=== PATIENT | female | born 1945 | race African-American/Black ===

== ENCOUNTER 2017-04-19 07:53 | Inpatient (IN) ==
[2017-04-19] MEDS ORDERED: Ondansetron 4 MG/2 ML VIAL IVP ONE (08:10)
[2017-04-19] MEDS ORDERED: *HR* HYDROmorphone (PF) 1 MG/ML SYRINGE IVP ONE (08:10)
--- NOTE | 2017-04-19 08:11 | Emergency Department Note ---
Disposition Clinical Impression: Ureterolithiasis Disposition: Admitted As Inpatient Condition: Fair Referrals: Jerad Bower DO [Primary Care Provider] - Forms: ED Satisfaction Letter, Work/School Release Time of Disposition: 09:37 Abdominal Pain HPI - General Chief Complaint: ED Abdominal Pain Stated Complaint: kidney stone Time Seen by Provider: 04/19/17 08:02 Source: patient, family Mode of arrival: ambulatory Limitations: no limitations Nursing Notes Reviewed: Yes Vital Signs Reviewed: Yes - History of Present Illness HPI Narrative: 71-year-old who developed right flank pain yesterday was seen at an outside facility and told that she had a 5 cm kidney stone. As a discharge instruction but they did not give her a disc of her CT. Pt Subjective Complaint: abdominal pain, flank pain Onset (ago): day(s) (1) Consistency: constant Location: R flank Pain Severity: moderate Pain Scale: 5 Quality: aching Radiation: none Migration to: no migration Improves with: nothing Worsens with: nothing Associated symptoms: Reports: nausea. Denies: fever - Related Data Home Medications Medication Instructions Recorded Confirmed Aspirin [Lo-Dose Aspirin EC] 81 mg PO DAILY 04/19/17 04/19/17 Celecoxib [Celebrex] 200 mg PO DAILY 04/19/17 04/19/17 Cephalexin [Keflex] 500 mg PO QID 04/19/17 04/19/17 Insulin Glargine,Hum.rec.anlog 35 unit SQ QPM 04/19/17 04/19/17 [Lantus Solostar] Losartan/HCTZ [Hyzaar 50-12.5 1 each PO DAILY 04/19/17 04/19/17 Tablet] Ondansetron ODT [Zofran ODT] 4 mg PO Q8H PRN 04/19/17 04/19/17 Oxycodone HCl/Acetaminophen 1 tab PO Q6H PRN 04/19/17 04/19/17 [Percocet 5-325 mg Tablet] Pantoprazole Sodium [Protonix] 40 mg PO DAILY 04/19/17 04/19/17 Allergies Allergy/AdvReac Type Severity Reaction Status Date / Time metformin AdvReac Intermediate Diarrhea Verified 04/19/17 09:48 Nickel AdvReac Rash Verified 04/19/17 09:48 All systems ED: reviewed and negative except as stated. Constitutional: Denies: fever, chills, weakness, weight change Eyes: Denies: eye pain, eye discharge, vision change ENT ED: Denies: ear pain, throat pain, dental pain, hearing loss, epistaxis, congestion, dysphagia Cardiovascular: Denies: chest pain, palpitations, dyspnea on exertion, edema, syncope Respiratory: Denies: cough, dyspnea, wheezes, hemoptysis, stridor Gastrointestinal: Denies: abdominal pain, nausea, vomiting, diarrhea, constipation, hematemesis, melena, hematochezia Genitourinary: Denies: dysuria, frequency, hematuria, discharge Musculoskeletal: Reports: back pain. Denies: neck pain, arthralgia, myalgia Integumentary: Denies: rash, abrasion, lesions Neurological: Denies: headache, weakness, numbness, paresthesias, confusion, abnormal gait, vertigo Psychiatric: Denies: anxiety, depression, suicidal thoughts, homicidal thoughts , auditory hallucinations, visual hallucinations Endocrine: Denies: fatigue Hematological/Lymphatic: Denies: easy bleeding, easy bruising Allergic/Immunologic: Denies: facial swelling, urticaria Abdominal Pain PMH - Past Medical History Medical history: Reports: cancer, diabetes, GERD, hypertension, kidney stones Female Surgical History: Reports: cancer surgery, hysterectomy, orthopedic, other Psychiatric history: Reports: no psych history - Social History Smoking status: Never smoker Alcohol use: Reports: occasionally Drug use: Reports: none Physical Exam - General Limitations: no limitations General appearance: alert, in no apparent distress - Head Head exam: atraumatic, normocephalic, normal inspection - Eye Eye exam: Present: normal appearance, PERRL, EOMI - ENT ENT exam: normal exam, normal oropharynx, mucous membranes moist - Neck Neck exam: Present: normal inspection, full ROM, trachea midline - Chest Chest inspection: Present: normal inspection, symmetric chest wall rise - Respiratory Respiratory exam: Present: normal lung sounds bilaterally - Cardiovascular Cardiovascular exam: Present: regular rate, normal rhythm, normal heart sounds - Abdominal Exam Abdominal exam: Present: soft, Non-Tender. Absent: tenderness, distention, guarding, rebound, rigidity - Extremities Exam Extremities exam: Present: normal inspection, full ROM. Absent: tenderness, pedal edema - Expanded Lower Extremity Exam Gait: observed and normal - Back Exam Back exam: Present: normal inspection, full ROM. Absent: tenderness - Neurological Exam Neurological exam: Present: alert, oriented X3 - Psychiatric Psychiatric exam: Present: normal affect, normal mood - Skin Skin exam: Present: warm, dry, intact, normal color Course - Reevaluation(s) Reevaluation #1: History 11-year-old who comes in seen at outside facility and diagnosed with a stone. Patient's unable tolerate the pain at home. Workup here shows a 6 x 7 proximal right ureter stone. There is some [place]. Urine does show 30-50 red cells 30-50 white cells. Patient's course is complicated by she is diabetic and she is 71 years old. Patient will be admitted for further evaluation and treatment. Time: 09:36 - Consultations Consultation #1: Discussed with see the patient in consult Time: 10:33 Consultation #2: Discussed with , admit. Time: 10:33 Vital Signs Temperature 98.0 F 04/19/17 07:54 Pulse Rate 58 04/19/17 07:54 Respiratory Rate 16 04/19/17 07:54 Blood Pressure 153/60 04/19/17 07:54 O2 Sat by Pulse Oximetry 96 04/19/17 07:54 Temperature 98.0 F 04/19/17 07:54 Pulse Rate 61 04/19/17 09:57 Respiratory Rate 18 04/19/17 09:57 Blood Pressure 142/47 04/19/17 09:57 O2 Sat by Pulse Oximetry 95 04/19/17 09:57 Oxygen Delivery Oxygen Delivery Nasal Cannula Abdominal Pain - Lab Data Lab results reviewed: Yes I reviewed the patient's lab results. Result diagrams: 04/19/17 08:14 04/19/17 08:14 Lab Results 04/19/17 04/19/17 04/19/17 Range/Units 08:04 08:14 08:14 WBC 7.8 (4.3-11.1) K/mcL RBC 4.43 (3.82-4.97) M/mcL Hgb 13.5 (11.5-15.4) g/dL Hct 39.4 (35.3-44.9) % MCV 88.9 (83.0-100.0) fL MCH 30.5 (28.0-33.3) pg MCHC 34.3 (31.6-35.5) g/dL RDW 13.1 (11.5-14.5) % Plt Count 284 (140-400) K/mcL MPV 9.7 (9.4-12.4) fL Immature Gran % 0.3 (0-4) % Seg Neutrophils % 54.5 % Lymphocytes % 32.8 % Monocytes % 8.5 % Eosinophils % 3.0 % Basophils % 0.9 % Neutrophils # 4.2 (1.6-8.9) K/mcL Lymphocytes # 2.5 (0.6-4.6) K/mcL Monocytes # 0.7 (0.0-1.3) K/mcL Eosinophils # 0.2 (0.0-0.6) K/mcL Basophils # 0.1 (0.0-0.2) K/mcL Sodium 139 (136-145) mEq/L Potassium 3.5 (3.5-4.5) mEq/L Chloride 105 (98-109) mEq/L Carbon Dioxide 27 (19-29) mEq/L BUN 18 (7-20) mg/dL Creatinine 1.34 H (0.57-1.11) mg/dL Est GFR ( Amer) 48 L (> 60) Est GFR (Non-Af Amer) 39 L (> 60) BUN/Creatinine Ratio 13 (6-26) Glucose 133 H (70-99) mg/dL Calculated Osmolality 292 (280-300) Calcium 9.1 (8.6-10.8) mg/dL Total Bilirubin 1.0 (0.2-1.2) mg/dL Direct Bilirubin 0.4 (0.0-0.5) mg/dL Indirect Bilirubin 0.6 (0.0-1.2) mg/dL AST 21 (5-34) Units/L ALT 30 (0-55) Units/L Alkaline Phosphatase 80 (38-126) Units/L Serum Total Protein 7.6 (6.0-8.3) g/dL Albumin 3.5 (3.5-5.0) g/dL Globulin 4.1 H (2.4-3.5) g/dL Albumin/Globulin Ratio 0.9 L (1.1-2.2) Amylase 52 (25-125) Units/L Lipase < 10 (8-78) Units/L Ur Specimen Adequacy See below A Urine Color Dark Yellow (Yellow) Urine Clarity Turbid A (Clear) Urine pH 5.5 (5.0-8.0) pH Units Ur Specific [place] > 1.030 H (1.010-1.025) Urine Protein Trace (Neg-Trace) mg/dL Urine Glucose (UA) Normal (Normal) mg/dL Urine Ketones Negative (Negative) mg/dL Urine Blood Negative (Negative) Urine Nitrite Negative (Negative) Urine Bilirubin Negative (Negative) Urine Urobilinogen Normal (Normal) mg/dL Ur Leukocyte Esterase Negative (Negative) Urine Microscopic RBC 30-50 H (0-3) per hpf Urine Microscopic WBC 30-50 H (0-3) per hpf Ur Squamous Epith Cells Many H (None-Few) per lpf Urine Bacteria Many H (None-Few) per hpf Hyaline Casts None Seen (None-Few) per lpf Urine Mucus Moderate H (Few) Ur Culture Indicated? NO (NO) - Radiology Data Radiology results reviewed: Yes I reviewed the patient's radiology results. Abdomen/Pelvis CT 04/19/17 08:08 IMPRESSION: 1. A 6 mm x 7 mm stone is present at the right UPJ, resulting in mild right-sided hydronephrosis. 2. Hepatic steatosis. 3. Diverticulosis. 4. Large midline ventral hernia, containing fat, several loops of small bowel, and a short segment of the transverse colon. No evidence of obstruction. D/ / 04/19/2017 09:28:07 Blake Ryan MD / catarino Interpreting Provider: Blake Ryan MD
[2017-04-19 08:18] LABS: Bilirubin,Urine Negative (Negative); Blood,Urine Negative (Negative); Clarity,Urine Turbid (Clear); Color,Urine Dark Yellow (Yellow); Glucose,Urine (UA) Normal (Normal); Ketones,Urine Negative (Negative); Leukocyte Esterase,Urine Negative (Negative); Nitrite,Urine Negative (Negative); PH,Urine 5.5 pH Units (5.0-8.0); Protein,Urine Trace mg/dL (Neg-Trace); Specific Gravity,Urine > 1.030 (1.010-1.025); Urobilinogen,Urine Normal (Normal)
[2017-04-19 08:23] LABS: Basophils # 0.1 K/mcL (0.0-0.2); Basophils % 0.9 %; Eosinophils # 0.2 K/mcL (0.0-0.6); Hematocrit 39.4 % (35.3-44.9); Hemoglobin 13.5 g/dL (11.5-15.4); Immature Granulocytes % 0.3 % (0-4); Lymphocytes # 2.5 K/mcL (0.6-4.6); Lymphocytes % 32.8 %; Mean Corpuscular HGB Conc 34.3 g/dL (31.6-35.5); Mean Corpuscular Hemoglobin 30.5 pg (28.0-33.3); Mean Corpuscular Volume 88.9 fL (83.0-100.0); Mean Platelet Volume 9.7 fL (9.4-12.4); Monocytes # 0.7 K/mcL (0.0-1.3); Monocytes % 8.5 %; Neutrophils # 4.2 K/mcL (1.6-8.9); Platelet Count 284 K/mcL (140-400); Red Blood Count 4.43 M/mcL (3.82-4.97); Red Cell Distribution Width 13.1 % (11.5-14.5); Segmented Neutrophils % 54.5 %
[2017-04-19 08:23] LABS: Bacteria,Urine Many per hpf (None-Few); RBC,Urine 30-50 per hpf (0-3); Squamous Epithelial Cell,Urine Many per lpf (None-Few); WBC,Urine 30-50 per hpf (0-3)
[2017-04-19 08:42] LABS: Alanine Aminotransferase 30 Units/L (0-55); Albumin 3.5 g/dL (3.5-5.0); Albumin/Globulin Ratio 0.9 (1.1-2.2); Alkaline Phosphatase 80 Units/L (38-126); Amylase 52 Units/L (25-125); Aspartate Amino Transferase 21 Units/L (5-34); BUN/Creatinine Ratio 13 (6-26); Bilirubin,Direct 0.4 mg/dL (0.0-0.5); Bilirubin,Indirect 0.6 mg/dL (0.0-1.2); Blood Urea Nitrogen 18 mg/dL (7-20); Calcium 9.1 mg/dL (8.6-10.8); Carbon Dioxide 27 mEq/L (19-29); Chloride 105 mEq/L (98-109); Globulin 4.1 g/dL (2.4-3.5); Glucose 133 mg/dL (70-99); Lipase < 10 Units/L (8-78); Osmolality,Calculated 292 (280-300); Potassium 3.5 mEq/L (3.5-4.5); Sodium 139 mEq/L (136-145); Total Protein 7.6 g/dL (6.0-8.3); eGFR For African Americans 48 (> 60); eGFR For Non-African Americans 39 (> 60)
[2017-04-19 08:49] LABS: Mucus,Urine Moderate (Few)
[2017-04-19 08:50] LABS: Hyaline Casts,Urine None Seen per lpf (None-Few)
[2017-04-19] MEDS: 0.9 % Sodium Chloride 1,000 ML IVC SCH ×3 (08:55→20:11)
[2017-04-19] MEDS ORDERED: Ondansetron 4 MG/2 ML VIAL IVP PRN (11:26)
[2017-04-19] MEDS ORDERED: Acetaminophen 325 MG TABLET PO PRN (11:26)
[2017-04-19] MEDS ORDERED: Dextrose Gel 15 GM PO PRN ×2 (11:28)
[2017-04-19] MEDS ORDERED: D5% in Water 1,000 ML IVC PRN (11:28)
[2017-04-19] MEDS ORDERED: *HR* Dextrose 50 % in Water (Syg) 50 ML SYRINGE IVP PRN (11:28)
[2017-04-19] MEDS ORDERED: Naloxone 0.4 MG/ML INJ IVP PRN (11:33)
--- NOTE | 2017-04-19 11:54 | Internal Med History&Physical ---
Date of Encounter: 04/19/17 Time of Encounter: 11:50 Assessment and Plan (1) Ureterolithiasis Current visit: Yes Status: Acute 1 patient's been experienced an onset of right flank pain as well as nausea. No fever or leukocytosis. CT of abdomen did reveal a 6 x 7 mm proximal right ureter stone with mild hydronephrosis. We have consulted urology We will continue with IV fluids Continue with pain management as well as nausea medicine Continue with IV antibiotic-Rocephin (2) KRISTI (acute kidney injury) Current visit: Yes Status: Acute 1 patient's creatinine is 1.34 baseline is less than 1 most likely related to hypoperfusion. We will hold Celebrex as well as hyzaar we will resume once patient's back to baseline. 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 Qualified Code(s): E11.9 - Type 2 diabetes mellitus without complications ; Z79.4 - nursing home (current) use of insulin; Z79.4 - terminologist (current) use of insulin; Z79.4 - nursing home (current) use of insulin; Z79.4 - nursing home ( current) use of insulin (4) Hypertension Current visit: Yes Status: Acute presently controlled-we will continue with home medications once KRISTI improved Qualifiers: Hypertension type: essential hypertension Qualified Code(s): I10 - Essential (primary) hypertension (5) DVT prophylaxis Current visit: Yes Status: Acute Heparin subcutaneous Internal Medicine - H&P: HPI Chief complaint: abd pain Admitted From: Emergency Dept Plans for Post Hospital Care: Home History of present illness: Ms. Mccarthy is a 71 year old female past uncle history of hypertension diabetes GERD uterine cancer in 2006. According to patient she was her usual state of health when yesterday she began to experience abdominal pressure as well as right-sided flank pain. She did note that she had decreased urinary output she described the urine as concentrated. She denies any fevers chills urinary frequency or urgency dysuria. She presented to outlying facility they are CT was done which did show kidney stone. She was given antibiotics as well as pain medications and discharged home. Patient continued to experience right flank pain overnight as well as nausea and vomiting. She presented to the ER where workup there showed a 6 x 7 proximal right ureter stone and mild hydronephrosis. She did have an elevated creatinine blood in her urine. ER physician did speak with urology who will see patient for consult. She has been admitted for further workup and evaluation. Presently patient does complain of some mild right flank discomfort. She does have right CVA tenderness abdomen soft and nontender. She is hemodynamically stable at this time review this case with Dr. Stoll who agrees with plan. Past Med Surg Social Fam HX - Past Medical History Medical history: cancer, diabetes, GERD, hypertension, kidney stones Psychiatric history: no psych history - Social History Smoking Status: Never smoker Smokeless Tobacco Status: No Alcohol use: occasionally Drug use: none - Family History Father Living Status: Age at : 63 Cause of : Renal cancer bone cancer Mother Living Status: Age at : 73 Cause of : Heart failure Hx Family Cancer: Yes Hx Family Endocrine Disorder: Yes (Diabetes) Internal Medicine - H&P: Meds Aspirin [Lo-Dose Aspirin EC] 81 mg PO DAILY 04/19/17 [History] Celecoxib [Celebrex] 200 mg PO DAILY 04/19/17 [History] Cephalexin [Keflex] 500 mg PO QID 04/19/17 [History] Insulin Glargine,Hum.rec.anlog [Lantus Solostar] 35 unit SQ QPM 04/19/17 [ History] Losartan/HCTZ [Hyzaar 50-12.5 Tablet] 1 each PO DAILY 04/19/17 [History] Ondansetron ODT [Zofran ODT] 4 mg PO Q8H PRN 04/19/17 [History] Oxycodone HCl/Acetaminophen [Percocet 5-325 mg Tablet] 1 tab PO Q6H PRN [History] Pantoprazole Sodium [Protonix] 40 mg PO DAILY 04/19/17 [History] 3 Allergy/AdvReac Type Severity Reaction Status Date / Time metformin AdvReac Intermediate Diarrhea Verified 04/19/17 09:48 Nickel AdvReac Rash Verified 04/19/17 09:48 All Systems PM: A 10-system review of systems was performed and is negative for pertinent findings except as documented above in the HPI. - Constitutional Constitutional: no chills, no fever(s), no night sweats - EENT Eyes: no change in vision, no discharge, no pain, no photophobia Nose, mouth and throat: no dysphagia, no nasal discharge, no neck pain, no sore throat - Cardiovascular Cardiovascular ROS IM: no chest pain, no diaphoresis, no dyspnea, no lightheadedness, no palpitations, no syncope - Respiratory Respiratory: no cough, no dyspnea, no wheezing, no excessive phlegm production - Gastrointestinal Gastrointestinal: nausea, vomiting, no abdominal pain, no diarrhea, no hematemesis, no hematochezia, no melena - Genitourinary Genitourinary: flank pain - Musculoskeletal Musculoskeletal ROS IM: no numbness, no tingling - Integumentary Integumentary IM: no rash, no unusual bruising - Neurological Neurological ROS: no confusion, no convulsions, no focal weakness, no numbness, no tingling, no tremor(s) - Constitutional Vitals: Temp Pulse Resp BP Pulse Ox 98.0 F 61 16 140/62 95 04/19/17 07:54 04/19/17 09:57 04/19/17 10:53 04/19/17 10:53 04/19/17 09:57 General appearance: Present: A&O X 3, answers questions appropriately - Head Head exam: Present: atraumatic, normocephalic - Eye Eye exam: Present: PERRL, conjuntiva pink, sclera anicteric Pupils: Present: PERRL - Neck Neck exam general surgery: Present: supple, trachea midline. Absent: lymphadenopathy - Respiratory Respiratory exam: Present: CTAB. Absent: accessory muscle use, rales, rhonchi, wheezes - Cardiovascular Cardiovascular exam: Present: RRR, +S1, +S2. Absent: diastolic murmur, gallop, rubs, systolic murmur - GI/Abdominal GI/Abdominal exam: Present: normal bowel sounds, soft, no peritoneal signs. Absent: distended, tenderness - Extremities Exam Extremities exam: Present: warm, radial pulses palpable and symmetrical. Absent : calf tenderness, cyanotic, pedal edema - Back Exam Back exam: Present: CVA tenderness (R) - Neurological Exam Neurological exam: Present: CN II-XII intact, oriented X3, no focal deficits. Absent: pronater drift, facial droop, speech deficit - Skin Skin exam: Present: dry, intact Internal Med - H&P Results - Labs CBC & Chem 7: 04/19/17 08:14 04/19/17 08:14 - Diagnostic Studies Other Images Additional comments: Abdomen/Pelvis CT 04/19/17 08:08 IMPRESSION: 1. A 6 mm x 7 mm stone is present at the right UPJ, resulting in mild right-sided hydronephrosis. 2. Hepatic steatosis. 3. Diverticulosis. 4. Large midline ventral hernia, containing fat, several loops of small bowel, and a short segment of the transverse colon. No evidence of obstruction. D/ / 04/19/2017 09:28:07 Blake Ryan MD / catarino Interpreting Provider: Blake Ryan MD
--- NOTE | 2017-04-19 12:12 | Urology - Consult Note ---
Date of Encounter: 04/19/17 Time of Encounter: 12:09 - Assessment and Plan (1) Acute renal insufficiency Current Visit: Yes Status: Acute Assessment and plan: Likely from dehydration as well as right ureteral stone. Continue with IV fluids (2) Ureterolithiasis Current Visit: Yes Status: Acute Assessment and plan: Plan at this time to continue with medical expulsion therapy with IV fluids and IV pain control. Patient will be scheduled for right ureteroscopic stone extraction tomorrow in the operating room. Urology CN:HPI Consult date: 04/19/17 Reason for consult Urology: Other (right proximal ureteral stone) Requesting physician: Chelsea Barahona History of present illness: Lanie is a 71-year-old female who had an episode of sharp right-sided flank pain couple days ago on a trip in [place]. She was found to have a right proximal 6 mm stone. Patient was discharged home. She then came to our emergency department today secondary to unrelenting right-sided flank pain. Repeat CT scan was done which showed proximal right ureteral stone with mild to moderate hydronephrosis. Patient's pain was poorly controlled and thus patient was brought in for observation for IV pain control. Patient without any nausea at this time but does have a poor appetite. No fevers. Past Med Surg Social Fam HX - Past Medical History Medical history: cancer, diabetes, GERD, hypertension, kidney stones Psychiatric history: no psych history - Social History Smoking Status: Never smoker Smokeless Tobacco Status: No Alcohol use: occasionally Drug use: none - Family History Father Living Status: Age at : 63 Cause of : Renal cancer bone cancer Mother Living Status: Age at : 73 Cause of : Heart failure Hx Family Cancer: Yes Hx Family Endocrine Disorder: Yes (Diabetes) Medications and Allergies Aspirin [Lo-Dose Aspirin EC] 81 mg PO DAILY 04/19/17 [History] Celecoxib [Celebrex] 200 mg PO DAILY 04/19/17 [History] Cephalexin [Keflex] 500 mg PO QID 04/19/17 [History] Insulin Glargine,Hum.rec.anlog [Lantus Solostar] 35 unit SQ QPM 04/19/17 [ History] Losartan/HCTZ [Hyzaar 50-12.5 Tablet] 1 each PO DAILY 04/19/17 [History] Ondansetron ODT [Zofran ODT] 4 mg PO Q8H PRN 04/19/17 [History] Oxycodone HCl/Acetaminophen [Percocet 5-325 mg Tablet] 1 tab PO Q6H PRN [History] Pantoprazole Sodium [Protonix] 40 mg PO DAILY 04/19/17 [History] 3 Allergy/AdvReac Type Severity Reaction Status Date / Time metformin AdvReac Intermediate Diarrhea Verified 04/19/17 09:48 Nickel AdvReac Rash Verified 04/19/17 09:48 Review of Systems - Constitutional no chills, no fever(s) - EENT Nose, mouth and throat: no dizziness - Cardiovascular no chest pain - Respiratory no cough - Gastrointestinal abdominal pain - Musculoskeletal back pain - Integumentary no erythema - Neurological no confusion Exam Initial Vital Signs Temp Pulse Resp BP Pulse Ox 98.0 F 58 16 153/60 96 04/19/17 07:54 04/19/17 07:54 04/19/17 07:54 04/19/17 07:54 04/19/17 07:54 - General physical appearance Present: well developed - Eyes Present: PERRL - ENT Present: normal nares - Neck Present: no masses - Respiratory Present: normal respiratory effort - Cardiovascular Cardiovascular exam IM: RRR - Abdomen Abdomen: Present: soft Urology Results - Labs 04/19/17 08:14 04/19/17 08:14 Abnormal lab results Creatinine 1.34 mg/dL (0.57-1.11) H 04/19/17 08:14 Est GFR ( Amer) 48 (> 60) L 04/19/17 08:14 Est GFR (Non-Af Amer) 39 (> 60) L 04/19/17 08:14 Glucose 133 mg/dL (70-99) H 04/19/17 08:14 Globulin 4.1 g/dL (2.4-3.5) H 04/19/17 08:14 Albumin/Globulin Ratio 0.9 (1.1-2.2) L 04/19/17 08:14 Ur Specimen Adequacy See below A 04/19/17 08:04 Urine Clarity Turbid (Clear) A 04/19/17 08:04 Ur Specific [place] > 1.030 (1.010-1.025) H 04/19/17 08:04 Urine Microscopic RBC 30-50 per hpf (0-3) H 04/19/17 08:04 Urine Microscopic WBC 30-50 per hpf (0-3) H 04/19/17 08:04 Ur Squamous Epith Cells Many per lpf (None-Few) H 04/19/17 08:04 Urine Bacteria Many per hpf (None-Few) H 04/19/17 08:04 Urine Mucus Moderate (Few) H 04/19/17 08:04 All other labs normal. - Imaging CT scan - abdomen: image reviewed CT scan - pelvis: image reviewed Consult Discharge Plan - Plan Referrals: Jerad Bower DO [Primary Care Provider] -
[2017-04-19] MEDS: Insulin LISPRO 300 UNITS/3 ML VIAL SQ SCH ×2 (14:30→17:59)
[2017-04-19] MEDS: *HR* HYDROmorphone (PF) 1 MG/ML SYRINGE IVP PRN ×2 (17:48→21:43)
[2017-04-19] MEDS: *HR* Heparin 5,000 UNIT/ML VIAL SQ SCH (17:48)
--- NOTE | 2017-04-19 19:11 | Anesthesia Evaluation PreOp ---
Date of Encounter: 04/19/17 Time of Encounter: 19:09 - Past History Planned Operation: Right Ureteroscopic stone extraction Cardiac History: Denies any Significant Hx, HTN Pulmonary History: Denies Any Significant HX, OXANA Dx MUSIC SPECIALIST History: Denies Any Significant HX, TIA (2000) Other Medical History: Hepatic ( Hepatic steatosis), Renal (acute kidney injury , stones), Diabetes Type II, GERD Anesthesia History: No Prior Anesthetic Complications, Past Anesthesia (SIMA, Left shoulder, Breast Reduction and biopsies) : No Alcohol Use: occasionally Drug use: none Medications and Allergies Aspirin [Lo-Dose Aspirin EC] 81 mg PO DAILY 04/19/17 [History] Celecoxib [Celebrex] 200 mg PO DAILY 04/19/17 [History] Cephalexin [Keflex] 500 mg PO QID 04/19/17 [History] Insulin Glargine,Hum.rec.anlog [Lantus Solostar] 35 unit SQ QPM 04/19/17 [ History] Losartan/HCTZ [Hyzaar 50-12.5 Tablet] 1 each PO DAILY 04/19/17 [History] Ondansetron ODT [Zofran ODT] 4 mg PO Q8H PRN 04/19/17 [History] Oxycodone HCl/Acetaminophen [Percocet 5-325 mg Tablet] 1 tab PO Q6H PRN [History] Pantoprazole Sodium [Protonix] 40 mg PO DAILY 04/19/17 [History] 3 Allergy/AdvReac Type Severity Reaction Status Date / Time metformin AdvReac Intermediate Diarrhea Verified 04/19/17 09:48 Nickel AdvReac Rash Verified 04/19/17 09:48 - Meds/Allergy Pre-op Review Medications Reviewed: Yes Allergies Reviewed: Yes Beta Blockers on Current Med List: No Anesthesia Results - Labs 04/19/17 08:14 04/19/17 08:14 Anesthesia Exam O2 Sat Height 1.7 m Weight 104.054 kg O2 Sat by Pulse Oximetry 96 O2 Sat by Pulse Oximetry 94 O2 Sat by Pulse Oximetry 95 O2 Sat by Pulse Oximetry 93 O2 Sat by Pulse Oximetry 88 O2 Sat by Pulse Oximetry 93 O2 Sat by Pulse Oximetry 96 Vital Signs Temp Pulse Resp BP Pulse Ox 98.0 F 58 16 153/60 96 04/19/17 07:54 04/19/17 07:54 04/19/17 07:54 04/19/17 07:54 04/19/17 07:54 Vital Signs/O2 Sat, Most Current Temp Pulse Resp BP Pulse Ox 98.1 F 61 14 144/64 96 04/19/17 18:43 04/19/17 18:43 04/19/17 18:43 04/19/17 18:43 04/19/17 18:43 Height: 5'7'' Weight: 229# NPO (# of Hours): > 8 hrs Pain Scale: 0 Pain Scale Used: Numeric (1 - 10) - HEENT Pupil (Motor): Pupils equal, EOMI Mallampati: III Teeth: Normal Oral Opening: Greater than 3 - MUSIC SPECIALIST LOC: Oriented MUSIC SPECIALIST Motor: Normal RUE, Normal LUE, Normal RLE, Normal LLE, Normal Face MUSIC SPECIALIST Sensory: Normal: RUE, LUE, RLE, LLE, Face - Cardiac Rhythm: Regular Murmur: None Carotid Bruit: No - Pulmonary Breath Sounds: bilateral Clear Respiratory Effort: Symmetrical Anesthesia Assess/Plan ASA Score: 3 Modified [place] Scale for Level of Consciousness: Cooperative, oriented, and tranquil Anesthetic Plan: General Autologous Blood: Yes Monitoring Plan: Standard Monitors Recovery Plan: PACU
[2017-04-20] MEDS: Insulin LISPRO 300 UNITS/3 ML VIAL SQ SCH ×4 (00:29→16:40)
[2017-04-20] MEDS: 0.9 % Sodium Chloride 1,000 ML IVC SCH ×3 (04:22→22:52)
[2017-04-20] MEDS: *HR* Heparin 5,000 UNIT/ML VIAL SQ SCH ×2 (05:14→17:57)
[2017-04-20 06:49] LABS: Basophils # 0.1 K/mcL (0.0-0.2); Basophils % 0.8 %; Eosinophils # 0.3 K/mcL (0.0-0.6); Eosinophils % 3.5 %; Hematocrit 34.6 % (35.3-44.9); Immature Granulocytes % 0.3 % (0-4); Lymphocytes # 1.7 K/mcL (0.6-4.6); Mean Corpuscular HGB Conc 33.5 g/dL (31.6-35.5); Mean Corpuscular Hemoglobin 29.7 pg (28.0-33.3); Mean Corpuscular Volume 88.5 fL (83.0-100.0); Mean Platelet Volume 10.1 fL (9.4-12.4); Monocytes # 0.7 K/mcL (0.0-1.3); Monocytes % 9.6 %; Neutrophils # 4.9 K/mcL (1.6-8.9); Platelet Count 244 K/mcL (140-400); Red Blood Count 3.91 M/mcL (3.82-4.97); Red Cell Distribution Width 13.5 % (11.5-14.5); Segmented Neutrophils % 63.8 %
[2017-04-20 07:03] LABS: Hemoglobin 11.6 g/dL (11.5-15.4)
[2017-04-20 07:04] LABS: Calcium 8.3 mg/dL (8.6-10.8); Potassium 3.6 mEq/L (3.5-4.5)
--- NOTE | 2017-04-20 07:27 | Urology Progress Note ---
Date of Encounter: 04/20/17 Time of Encounter: : - Assessment and Plan (1) Acute renal insufficiency Current Visit: Yes Status: Acute (2) Ureterolithiasis Current Visit: Yes Status: Acute Assessment and plan: to or today for stone extraction. Progress Note Narrative: patient seen. feeling ok. Objective Initial Vital Signs Temp Pulse Resp BP Pulse Ox 98.0 F 58 16 153/60 96 04/19/17 07:54 04/19/17 07:54 04/19/17 07:54 04/19/17 07:54 04/19/17 07:54 - General physical appearance Present: well developed - Abdomen Present: soft - Labs 04/20/17 05:28 04/20/17 05:28 Diabetes panel 04/20/17 Range/Units 05:28 Sodium 139 (136-145) mEq/L Potassium 3.6 (3.5-4.5) mEq/L Chloride 107 (98-109) mEq/L Carbon Dioxide 25 (19-29) mEq/L BUN 15 (7-20) mg/dL Creatinine 1.38 H (0.57-1.11) mg/dL Glucose 98 (70-99) mg/dL Calcium 8.3 L (8.6-10.8) mg/dL Calcium panel 04/20/17 Range/Units 05:28 Calcium 8.3 L (8.6-10.8) mg/dL Pituitary panel 04/20/17 Range/Units 05:28 Sodium 139 (136-145) mEq/L Potassium 3.6 (3.5-4.5) mEq/L Chloride 107 (98-109) mEq/L Carbon Dioxide 25 (19-29) mEq/L BUN 15 (7-20) mg/dL Creatinine 1.38 H (0.57-1.11) mg/dL Glucose 98 (70-99) mg/dL Calcium 8.3 L (8.6-10.8) mg/dL Adrenal panel 04/20/17 Range/Units 05:28 Sodium 139 (136-145) mEq/L Potassium 3.6 (3.5-4.5) mEq/L Chloride 107 (98-109) mEq/L Carbon Dioxide 25 (19-29) mEq/L BUN 15 (7-20) mg/dL Creatinine 1.38 H (0.57-1.11) mg/dL Glucose 98 (70-99) mg/dL Calcium 8.3 L (8.6-10.8) mg/dL Consult Discharge Plan - Plan Referrals: Jerad Bower DO [Primary Care Provider] -
[2017-04-20] MEDS ORDERED: Pantoprazole 40 MG VIAL IVP SCH (09:00)
[2017-04-20] MEDS ORDERED: Aspirin Enteric Coated 81 MG Tablet PO SCH (09:00)
[2017-04-20] MEDS ORDERED: Dexamethasone 4 MG/ML VIAL ONE (10:47)
[2017-04-20] MEDS ORDERED: *HR* Propofol 200 MG/20 ML VIAL IVP ONE (10:47)
[2017-04-20] MEDS ORDERED: Ondansetron 4 MG/2 ML VIAL ONE (11:34)
[2017-04-20] MEDS ORDERED: Lidocaine -MPF 2% 2 ML VIAL ONE (11:34)
[2017-04-20] MEDS ORDERED: *HR* FentaNYL (PF) 100 MCG/2 ML VIAL ONE (11:35)
--- NOTE | 2017-04-20 12:27 | Internal Med Progress Note ---
Date of Encounter: 04/20/17 Time of Encounter: 11:00 - Assessment and plan (1) KRISTI (acute kidney injury) Current Visit: Yes Status: Acute Assessment and plan: Post-renal Continue IVF hydration Avoid nephrotoxins Continue monitoring Anticipate improvement after stone extraction (2) Ureterolithiasis Current Visit: Yes Status: Acute Assessment and plan: For stone extraction today by urology (3) Diabetes mellitus Current Visit: Yes Status: Chronic Assessment and plan: FS acceptable Continue current regimen Qualifiers: Diabetes mellitus type: type 2 Diabetes mellitus complication status: without complication Diabetes mellitus intermediate accountant insulin use: with intermediate accountant use Qualified Code(s): E11.9 - Type 2 diabetes mellitus without complications ; Z79.4 - termite helper (current) use of insulin; Z79.4 - termite helper (current) use of insulin; Z79.4 - termite helper (current) use of insulin; Z79.4 - termite helper ( current) use of insulin (4) Hypertension Current Visit: Yes Status: Chronic Assessment and plan: Uncontrolled Home Lisinopril/HCTZ on hold Start Norvasc Continue to monitor Qualifiers: Hypertension type: essential hypertension Qualified Code(s): I10 - Essential (primary) hypertension (5) DVT prophylaxis Current Visit: Yes Status: Acute Assessment and plan: SQ heparin (6) Hydronephrosis Current Visit: Yes Status: Acute Assessment and plan: R sided Management as in ureterolithiasis Qualifiers: Hydronephrosis type: with ureteral calculous obstruction Qualified Code(s) : N13.2 - Hydronephrosis with renal and ureteral calculous obstruction (7) UTI (urinary tract infection) Current Visit: Yes Status: Suspected Assessment and plan: Suspected Continue Rocephin Urine culture ordered today 04/20 Qualifiers: Urinary tract infection type: acute cystitis Hematuria presence: without hematuria Qualified Code(s): N30.00 - Acute cystitis without hematuria - Subjective Interval history: 71 F admitted for KRISTI with obstructive uropathy secondary to ureterolithiasis Has no new complains She has a PMH of DM, HTN Urology is following. - Constitutional Vitals: Temp Pulse Resp BP Pulse Ox 98.3 F 72 20 146/71 95 04/20/17 10:45 04/20/17 10:45 04/20/17 10:45 04/20/17 10:45 04/20/17 10:45 General appearance: Present: A&O X 3, pleasant, no acute distress, obese, answers questions appropriately - Head Head exam: Present: atraumatic, normocephalic - Eye Eye exam: Present: PERRL, conjuntiva pink, sclera anicteric Pupils: Present: PERRL - Neck Neck exam general surgery: Present: supple, trachea midline. Absent: lymphadenopathy - Respiratory Respiratory exam: Present: CTAB. Absent: accessory muscle use, rales, rhonchi, wheezes - Cardiovascular Cardiovascular exam: Present: RRR, +S1, +S2. Absent: diastolic murmur, gallop, rubs, systolic murmur - GI/Abdominal GI/Abdominal exam: Present: normal bowel sounds, soft, no peritoneal signs. Absent: distended, tenderness - Extremities Exam Extremities exam: Present: warm, radial pulses palpable and symmetrical. Absent : calf tenderness, cyanotic, pedal edema - Neurological Exam Neurological exam: Present: alert, CN II-XII intact, oriented X3, no focal deficits. Absent: pronater drift, facial droop, speech deficit - Skin Skin exam: Present: dry, intact Internal Medicine: Result - Labs CBC & Chem 7: 04/20/17 05:28 04/20/17 05:28 Labs: Short CBC 04/20/17 Range/Units 05:28 WBC 7.7 (4.3-11.1) K/mcL Hgb 11.6 D (11.5-15.4) g/dL Hct 34.6 L (35.3-44.9) % Plt Count 244 (140-400) K/mcL Neutrophils # 4.9 (1.6-8.9) K/mcL BMP 04/20/17 05:28 Sodium 139 Potassium 3.6 Chloride 107 Carbon Dioxide 25 BUN 15 Creatinine 1.38 H Glucose 98 Calcium 8.3 L Consult Discharge Plan - Plan Referrals: Jerad Bower DO [Primary Care Provider] -
[2017-04-20] MEDS ORDERED: *HR* HYDROmorphone (PF) 1 MG/ML SYRINGE IVP PRN ×2 (14:05→15:54)
[2017-04-20] MEDS ORDERED: *HR* Promethazine 25 MG/ML VIAL IVP PRN ×2 (14:05→15:54)
[2017-04-20] MEDS ORDERED: *HR* OxyCODONE/APAP 5/325 TABLET PO PRN ×2 (14:09→15:54)
[2017-04-20] MEDS ORDERED: amLODIPine 5 MG TABLET PO SCH (14:15)
--- NOTE | 2017-04-20 15:00 | Anesthesia Evaluation Post Op ---
Date of Encounter: 04/20/17 Time of Encounter: 14:58 - Vital Signs Vital Signs: Vital Signs/O2 Sat/Glucose, Most Current Temp Pulse Resp BP Pulse Ox 04/20/17 14:50 55 16 163/76 92 04/20/17 14:40 63 16 155/69 93 04/20/17 14:30 98.0 F 58 16 160/76 96 - Lungs Lungs: Clear Ascult./Percussion - Airway Airway: Non-obstructed - Cardiovascular Regular Rate - Mental Status Mental Status: Alert & Oriented, Answers Appropriately - Pain Pain Scale: 1 Pain Scale used: Numeric (1 - 10) - Nausea Vomiting Nausea Vomiting: Not Present - Hydration Hydration: Ice chips, Has not voided - Discharge PostOp Status: Transfer Patient to floor Anes Supervising Prov Stmt: Pt seen/evaluated, VSS and pt has met criteria for discharge to floor. - MD Ronda
--- NOTE | 2017-04-20 15:47 | Operative Note ---
Date of procedure: 04/20/17 Pre-op diagnosis: right upj stone Post-op diagnosis: same Procedure: right ureteroscopic stone extraction with laser and basket. right 4.8x26cm ureteral stent. Anesthesia: GETA Surgeon: Hayder Santos Specimen: right kidney stone Condition: stable Disposition: PACU Procedure in Detail: Patient was prepped and draped in normal sterile fashion. Timeout procedure performed. Cystoscope was inserted into the patient's bladder. The right ureteral orifice was cannulated using a sensor wire. This was advanced into the right kidney using fluoroscopy. I then inserted the 11 x 13 x 36 ammeter access sheath on the right side. Flexible ureteroscope was placed through this into the right kidney where I encountered the 8 mm stone. Holmium laser was used to fragment the stone. All stone fragments were removed using a basket device. Wire was then back fed into the right kidney where a 4.8 x 26 cm.. ureteral stent was placed with good curl seen in the right kidney and in the bladder. String was left for easy removal
[2017-04-20] MEDS ORDERED: *HR* Dextrose 50 % in Water (Syg) 50 ML SYRINGE IVP PRN (15:54)
[2017-04-20] MEDS ORDERED: Ondansetron 4 MG/2 ML VIAL IVP PRN (15:54)
[2017-04-20] MEDS ORDERED: D5% in Water 1,000 ML IVC PRN (15:54)
[2017-04-20] MEDS ORDERED: Acetaminophen 325 MG TABLET PO PRN (15:54)
[2017-04-20] MEDS ORDERED: Naloxone 0.4 MG/ML INJ IVP PRN (15:54)
[2017-04-20] MEDS ORDERED: Dextrose Gel 15 GM PO PRN ×2 (15:54)
[2017-04-20] MEDS ORDERED: Insulin LISPRO 300 UNITS/3 ML VIAL SQ SCH ×2 (18:00→21:00)
[2017-04-21 01:11] LABS: Basophils % 0.2 %; Hematocrit 36.6 % (35.3-44.9); Hemoglobin 12.6 g/dL (11.5-15.4); Immature Granulocytes % 0.5 % (0-4); Lymphocytes # 0.7 K/mcL (0.6-4.6); Lymphocytes % 11.2 %; Mean Corpuscular HGB Conc 34.4 g/dL (31.6-35.5); Mean Corpuscular Hemoglobin 30.4 pg (28.0-33.3); Mean Corpuscular Volume 88.4 fL (83.0-100.0); Mean Platelet Volume 9.9 fL (9.4-12.4); Monocytes # 0.1 K/mcL (0.0-1.3); Monocytes % 1.8 %; Neutrophils # 5.6 K/mcL (1.6-8.9); Platelet Count 252 K/mcL (140-400); Red Blood Count 4.14 M/mcL (3.82-4.97); Red Cell Distribution Width 12.9 % (11.5-14.5); Segmented Neutrophils % 86.3 %
[2017-04-21 01:25] LABS: BUN/Creatinine Ratio 13 (6-26); Blood Urea Nitrogen 12 mg/dL (7-20); Calcium 8.7 mg/dL (8.6-10.8); Carbon Dioxide 22 mEq/L (19-29); Chloride 107 mEq/L (98-109); Glucose 170 mg/dL (70-99); Osmolality,Calculated 290 (280-300); Sodium 138 mEq/L (136-145); eGFR For African Americans > 60 (> 60); eGFR For Non-African Americans 60 (> 60)
[2017-04-21] MEDS: *HR* Heparin 5,000 UNIT/ML VIAL SQ SCH (06:13)
[2017-04-21] MEDS: 0.9 % Sodium Chloride 1,000 ML IVC SCH (06:52)
[2017-04-21] MEDS: Insulin LISPRO 300 UNITS/3 ML VIAL SQ SCH (07:41)
[2017-04-21] MEDS ORDERED: Aspirin Enteric Coated 81 MG Tablet PO SCH (09:00)
[2017-04-21] MEDS ORDERED: Pantoprazole 40 MG VIAL IVP SCH (09:00)
[2017-04-21] MEDS ORDERED: amLODIPine 5 MG TABLET PO SCH (09:00)
--- NOTE | 2017-04-21 10:42 | Discharge Summary ---
Date of Encounter: 04/21/17 Time of Encounter: 10:39 - Discharge Diagnosis (1) KRISTI (acute kidney injury) Priority: Primary Status: Resolved (2) Ureterolithiasis Priority: Primary Status: Resolved (3) Diabetes mellitus Priority: Secondary Status: Chronic Qualifiers: Diabetes mellitus type: type 2 Diabetes mellitus complication status: without complication Diabetes mellitus meterman insulin use: with meterman use Qualified Code(s): E11.9 - Type 2 diabetes mellitus without complications ; Z79.4 - retirement (current) use of insulin; Z79.4 - retirement (current) use of insulin; Z79.4 - retirement (current) use of insulin; Z79.4 - retirement ( current) use of insulin (4) Hypertension Priority: Secondary Status: Chronic Qualifiers: Hypertension type: essential hypertension Qualified Code(s): I10 - Essential (primary) hypertension (5) DVT prophylaxis Priority: Primary Status: Acute (6) Hydronephrosis Priority: Primary Status: Acute Qualifiers: Hydronephrosis type: with ureteral calculous obstruction Qualified Code(s) : N13.2 - Hydronephrosis with renal and ureteral calculous obstruction (7) UTI (urinary tract infection) Priority: Primary Status: Suspected Qualifiers: Urinary tract infection type: acute cystitis Hematuria presence: without hematuria Qualified Code(s): N30.00 - Acute cystitis without hematuria - Discharge Medications Prescriptions: Cefdinir [Omnicef] 300 mg PO DAILY #5 capsule Home Medications: Aspirin [Lo-Dose Aspirin EC] 81 mg PO DAILY 04/19/17 [History] Insulin Glargine,Hum.rec.anlog [Lantus Solostar] 35 unit SQ QPM 04/19/17 [ History] Losartan/HCTZ [Hyzaar 50-12.5 Tablet] 1 each PO DAILY 04/19/17 [History] Ondansetron ODT [Zofran ODT] 4 mg PO Q8H PRN 04/19/17 [History] Oxycodone HCl/Acetaminophen [Percocet 5-325 mg Tablet] 1 tab PO Q6H PRN [History] Pantoprazole Sodium [Protonix] 40 mg PO DAILY 04/19/17 [History] Cefdinir [Omnicef] 300 mg PO DAILY #5 capsule 04/21/17 [Rx] Allergies/Adverse Reactions: 3 Allergy/AdvReac Type Severity Reaction Status Date / Time metformin AdvReac Intermediate Diarrhea Verified 04/19/17 09:48 Nickel AdvReac Rash Verified 04/19/17 09:48 Date of admission: 04/19/17 15:53 Primary care physician: Jerad Bower Discharging clinician: Phi Reed Anticipated date of discharge: 04/21/17 - Patient Status Disposition: Home, Self-Care Condition: Good Functional capacity at discharge: independent ambulation Overall status at discharge: patient is back to baseline - Discharge Instructions Instructions: Kidney Stones (GEN), Ureteroscopy (GEN), Lithotripsy for Removal of Kidney Stones (DC) Follow Up With: Hayder Santos MD [Partnered Physician] - 05/09/17 1:30 pm (2-3 weeks) Jerad Bower DO [Primary Care Provider] - 04/25/17 9:30 am - Diet and Activity Activity: return to work once cleared by your PCP/specialist Diet: diabetic diet, low salt diet Interval History: See below Hospital course: Ms. Mccarthy is a 71 year old female admitted for KRISTI, post-renal with associated ureterolithiasis and R hydronephrosis She was started on empiric antibiotics, IVF hydration and Urology was consulted She had stone extraction done 04/20/17 Her renal function has significantly improved this morning She is seen and evaluated at bedside Exam unremarkable, reports significant improvement Stable to be discharged home on 5 days Omnicef Follow up with PCP - Time Spent with Patient Total time spent providing and/or coordinating discharge services: Less than 30 minutes - Constitutional Vitals: Temp Pulse Resp BP Pulse Ox 97.8 F 68 16 147/73 96 04/21/17 07:57 04/21/17 07:57 04/21/17 07:57 04/21/17 07:57 04/21/17 07:57 General appearance: Present: A&O X 3, pleasant, no acute distress, obese, answers questions appropriately - Head Head exam: Present: atraumatic, normocephalic - Eye Eye exam: Present: PERRL, conjuntiva pink, sclera anicteric Pupils: Present: PERRL - Neck Neck exam general surgery: Present: supple, trachea midline. Absent: lymphadenopathy - Respiratory Respiratory exam: Present: CTAB. Absent: accessory muscle use, rales, rhonchi, wheezes - Cardiovascular Cardiovascular exam: Present: RRR, +S1, +S2. Absent: diastolic murmur, gallop, rubs, systolic murmur - GI/Abdominal GI/Abdominal exam: Present: normal bowel sounds, soft, no peritoneal signs. Absent: distended, tenderness - Extremities Exam Extremities exam: Present: warm, radial pulses palpable and symmetrical. Absent : calf tenderness, cyanotic, pedal edema - Neurological Exam Neurological exam: Present: alert, CN II-XII intact, oriented X3, no focal deficits. Absent: pronater drift, facial droop, speech deficit - Skin Skin exam: Present: dry, intact - VTE Documentation of Mechanical Device: Intermittent pneumatic compression device
[2017-04-21 11:39] VITALS: BP 131/73
[2017-04-22] MEDS ORDERED: cefTRIAXone 1,000 MG in Water for inj. (sterile) 10 ML IVP SCH (09:00)
== END 2017-04-21 13:41 | disposition home or self-care (01) | DRG 669 ==
LOC: EMEROO 07:53 → 3BNU 07:53 → SUATTDRO 15:53
PROVIDERS: ADMIT Internal Medicine; ATTEND Internal Medicine